=== PATIENT | male | born 1995 | race Two or more races ===

== ENCOUNTER 2023-06-19 22:18 | Emergency (ER) | payer SELFPAY ==
[~2023-06-19] VITALS: Ht 172.7 cm; Wt 100.0 kg
[2023-06-20 03:30] VITALS: BP 111/86; RESP 20; TEMP 98.2; O2SAT 98
[2023-06-20] MEDS ORDERED: PRED20TA2 PO (03:33)
[2023-06-20] MEDS ORDERED: AZIT-43 PO (03:33)
[2023-06-20 03:42] VITALS: PULSE 83
[2023-06-20] MEDS ORDERED: cefTRIAXone SOD 1,000 MG VL IM ONE (03:45)
== END 2023-06-20 04:00 | disposition home or self-care (01) ==
LOC: ER 22:18
DX: J06.9 Acute upper respiratory infection, unspecified (principal); U07.1 COVID-19
CPT/HCPCS: 71045; 93005; 96372; 99283; J0696; J7030